=== PATIENT | male | born 1980 | race Caucasian/White ===

== ENCOUNTER 2022-06-15 21:33 | Emergency (ER) | payer OTHER ==
[~2022-06-15] VITALS: Ht 180.3 cm; Wt 77.1 kg
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
[2022-06-15 21:37] VITALS: BP 98/65
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
[2022-06-15] MEDS ORDERED: ACETAMINOPHEN EXTRA STRENGTH 500 MG TAB PO ONE (22:15)
[2022-06-15] MEDS ORDERED: IBUPROFEN 600 MG TAB PO ONE (22:15)
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
[2022-06-15] MEDS ORDERED: ACET-10509 PO (22:59)
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
[2022-06-15 23:55] VITALS: BP 107/73
--- NOTE | 2022-06-15 23:55 | NUR ---
Patient discharged with v/s stable. Written and verbal after care instructions given and explained. Patient alert, oriented and verbalized understanding of instructions. All questions addressed prior to discharge. ID band removed. Patient advised to follow up with PMD. Rx of Tylenol 1000 mg po given. Patient educated on indication of medication including possible reaction and side effects. Opportunity to ask questions provided and answered.
== END 2022-06-15 23:55 | disposition home or self-care (01) ==
LOC: MED 21:33
DX: S01.81XA Laceration without foreign body of other part of head, initial encounter (principal); Z79.899 Other long term (current) drug therapy; V49.49XA Driver injured in collision with other motor vehicles in traffic accident, initial encounter; Y93.89 Activity, other specified; Y92.89 Other specified places as the place of occurrence of the external cause; Y99.8 Other external cause status
CPT/HCPCS: 99282